=== PATIENT | female | born 1990 | race African-American/Black ===

== ENCOUNTER 2019-11-09 12:32 | Emergency (ER) | payer MEDICAID ==
[~2019-11-09] VITALS: Ht 167.6 cm; Wt 48.0 kg
[2019-11-09 13:36] VITALS: BP 102/59
[2019-11-09] MEDS ORDERED: LIDOCAINE HCL/EPINEPHRINE 1%-EPI 1:100,000 20 ML VIAL INFIL ONE (15:00)
[2019-11-09] MEDS ORDERED: BACITRACIN ZINC OINT UDPKT TOP ONE (16:15)
== END 2019-11-09 16:40 | disposition home or self-care (01) ==
LOC: ER 13:15
DX: S01.411A Laceration without foreign body of right cheek and temporomandibular area, initial encounter (principal); W01.0XXA Fall on same level from slipping, tripping and stumbling without subsequent striking against object, initial encounter; Y93.9 Activity, unspecified
CPT/HCPCS: 12011; 99283; J3490

== ENCOUNTER 2020-02-27 16:55 | Emergency (ER) | payer MEDICAID, OTHER ==
[~2020-02-27] VITALS: Ht 167.6 cm; Wt 45.5 kg
[2020-02-27 17:40] VITALS: BP 127/79
[2020-02-27] MEDS ORDERED: ACETAMINOPHEN 325MG TABLET PO ONE (18:15)
== END 2020-02-27 19:21 | disposition home or self-care (01) ==
LOC: ER 16:55
DX: S00.93XA Contusion of unspecified part of head, initial encounter (principal); V49.88XA Car occupant (driver) (passenger) injured in other specified transport accidents, initial encounter; Y93.89 Activity, other specified; Y92.89 Other specified places as the place of occurrence of the external cause; Y99.8 Other external cause status
CPT/HCPCS: 99282

== ENCOUNTER 2021-09-02 08:52 | Emergency (ER) | payer MEDICAID ==
[~2021-09-02] VITALS: Ht 167.6 cm; Wt 50.0 kg
[2021-09-02] MEDS ORDERED: VALA100044 MT (11:03)
[2021-09-02] MEDS ORDERED: GABA-529 MT (11:03)
[2021-09-02 11:11] VITALS: BP 114/74
== END 2021-09-02 11:12 | disposition home or self-care (01) ==
LOC: ER 08:52
DX: B02.9 Zoster without complications (principal)
CPT/HCPCS: 99283; J7040; 99281